=== PATIENT | male | born 1985 | race Caucasian/White ===

== ENCOUNTER 2017-06-12 12:24 | Emergency (ER) | payer MEDICAID ==
[2017-06-12 12:38] VITALS: BP 142/86
--- NOTE | 2017-06-12 12:56 | ED Physician Documentation ---
PD HPI URI - Stated complaint Stated Complaint: SORE THROAT - Chief complaint Chief Complaint: Heent - History obtained from History obtained from: Patient - History of Present Illness Timing - onset: How many days ago (2-3) Timing duration: Days (2-3) Timing details: Gradual onset, Still present Associated symptoms: Sore throat, Dry cough. No: Fever, Nasal congestion, NVD Contributing factors: Other (his boss at [employer] told him he needed to get cleared of strep before continuing work. Here for evaluation. Wants note to say if strep or not.). No: Sick contact Similar symptoms before: Has not had sx before Recently seen: Not recently seen Review of Systems Constitutional: denies: Fever, Chills Nose: reports: Congestion Throat: reports: Sore throat Cardiac: denies: Chest pain / pressure Respiratory: reports: Cough GI: denies: Nausea, Vomiting, Diarrhea Skin: denies: Rash, Lesions PD PAST MEDICAL HISTORY - Past Medical History Cardiovascular: None Respiratory: None Neuro: None Endocrine/Autoimmune: None - Present Medications Home Medications: Ambulatory Orders Medication Instructions Recorded Confirmed No Known Home Medications [No 06/12/17 06/12/17 Known Home Medications] - Allergies Allergies/Adverse Reactions: Allergies Allergy/AdvReac Type Severity Reaction Status Date / Time Penicillins Allergy Hives Verified 06/12/17 12:38 PD ED PE NORMAL - Vitals Vital signs reviewed: Yes - General General: Alert and oriented X 3, No acute distress, Well developed/nourished - HEENT HEENT: No: Pharynx benign (mild redness without swelling nor exudate.) - Neck Neck: Supple, no meningeal sign, Other (mild anterior adenopathy.) - Cardiac Cardiac: RRR, No murmur - Respiratory Respiratory: Clear bilaterally - Derm Derm: Normal color, Warm and dry, No rash - Neuro Neuro: Alert and oriented X 3, Normal speech Results - Vitals Vitals: Vital Signs - 24 hr 06/12/17 12:37 Temperature 36.8 C Heart Rate 73 Respiratory 16 Rate Blood Pressure 142/86 H O2 Saturation 98 Oxygen O2 Source Room air - Labs Labs: Laboratory Tests 06/12/17 13:06 Group A Strep Rapid Negative PD MEDICAL DECISION MAKING - ED course Complexity details: reviewed results, considered differential, d/w patient Departure - Departure Disposition: 01 Home, Self Care Clinical Impression: Upper respiratory infection Qualifiers: URI type: unspecified URI Qualified Code(s): J06.9 - Acute upper respiratory infection, unspecified Condition: Stable Record reviewed to determine appropriate education?: Yes Instructions: ED Upper Resp Infec No Abx Tx Comments: Your rapid strep test is negative. The culture will result in 2 or 3 days and sometimes will molded goods spot picker on infections that the rapid test misses. For now presume viral infection drink lots of fluids and use Tylenol or ibuprofen as needed. Forms: Activity restrictions Discharge Date/Time: 06/12/17 13:36
[2017-06-12] MEDS ORDERED: ACETAMINOPHEN 325 MG TABLET PO STA (13:08)
[2017-06-12] MEDS ORDERED: DEXAMETHASONE 10 MG/ML VIAL PO STA (13:08)
[2017-06-12] MEDS ORDERED: CHERRY SYRUP 10 ML UDC PO ONE (13:29)
== END 2017-06-12 13:36 | disposition home or self-care (01) ==
LOC: ED 12:24
DX: J06.9 Acute upper respiratory infection, unspecified (principal)
CPT/HCPCS: 87070; 87430; 99283; A9270

== ENCOUNTER 2019-03-29 12:31 | Emergency (ER) | payer MEDICAID, OTHER ==
--- NOTE | 2019-03-29 13:18 | ED Physician Documentation ---
PD HPI OPHTHO - Stated complaint Stated Complaint: RT EYE SWELLING - Chief complaint Chief Complaint: Heent - History obtained from History obtained from: Patient - History of Present Illness Timing - onset: Today Timing - duration: Hours (2) Timing - details: Abrupt onset Quality / character: Burning Associated symptoms: Redness, Swelling, Tearing, FB sensation, Photophobia. 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 He woke up this morning about 2 hours prior to presentation with that sensation in the eye was very swollen. 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 He does not wear contacts or glasses. He has had minimal upper respiratory symptoms with some nasal congestion recently but no fevers. No discharge from the eye. He looked in the eye but did not see anything in it. Review of Systems Constitutional: denies: Fever Eyes: reports: Photophobia, Irritation. denies: Loss of vision, Discharge Nose: reports: Congestion. denies: Rhinorrhea / runny nose PD PAST MEDICAL HISTORY - Past Medical History Cardiovascular: None Respiratory: None Endocrine/Autoimmune: None - Past Surgical History Past Surgical History: No - Present Medications Home Medications: Ambulatory Orders Medication Instructions Recorded Confirmed Erythromycin Base [Erythromycin 0.5 inch OP Q4H #1 tube 03/29/19 Ophthalmic Ointment] - Allergies Allergies/Adverse Reactions: Allergies Allergy/AdvReac Type Severity Reaction Status Date / Time Penicillins Allergy Hives Verified 03/29/19 12:36 - Social History Does the pt smoke?: Yes Smoking Status: Current every day smoker Does the pt drink ETOH?: Yes Does the pt have substance abuse?: Yes PD ED PE NORMAL - Vitals Vital signs reviewed: Yes - General General: Alert and oriented X 3, No acute distress, Well developed/nourished - HEENT HEENT: Atraumatic, PERRL, EOMI - Respiratory Respiratory: No respiratory distress PD ED PE EXPANDED - Eyes Eyes: Visual acuity - see nn, Right eye, Normal eyelids, No eyelid FB (everted), Injected conj/sclera, Corneal abrasion (Mid cornea there is a rectangular shaped abrasion oriented perpendicular to the eyelids.), Fluorescein uptake, Anterior chambers clear. No: Eyelid swelling, Eyelid erythema, Exudate, Corneal ulcer, Hyphema Results - Vitals Vitals: Vital Signs - 24 hr 03/29/19 12:36 Temperature 36.8 C Heart Rate 82 Respiratory 17 Rate Blood Pressure 170/94 H O2 Saturation 98 Oxygen O2 Source Room air PD MEDICAL DECISION MAKING - ED course Complexity details: d/w patient, d/w family ED course: Visual acuity was 20/20 in the left eye but only 20/50 in the right I given the location of the abrasion I am not surprised about that. The patient had erythromycin ophthalmic ointment put in the eye. He said the proparacaine drops helped relieve the pain immensely but it was already starting to return a little bit, so he was given a dose of ibuprofen orally. He is to use erythromycin ophthalmic ointment every 4 hours for the next 2 to 3 days. Follow-up with a observer helper or conference and event organiser in 24 hours if not completely 100% improved. Otherwise follow-up with observer helper or conference and event organiser for reevaluation of his vision in 12 to 14 days due to the location of the abrasion. Departure - Departure Disposition: 01 Home, Self Care Clinical Impression: Corneal abrasion, right Qualifiers: Encounter type: initial encounter Qualified Code(s): S05.01XA - Injury of conjunctiva and corneal abrasion without foreign body, right eye, initial encounter Condition: Good Instructions: ED Eye Injury Corneal Abrasion Follow-Up: Lalito Chapman MD [Provider Admit Priv/Credential] - Flaca Castro, OD [Physician No Access] - Prescriptions: Erythromycin Base [Erythromycin Ophthalmic Ointment] 0.5 inch OP Q4H #1 tube Comments: Take ibuprofen [id number] for pain. Avoid bright or flashing lights particularly from screens. Use the eye ointment every 4 hours for the next 2 to 3 days. You should see an conference and event organiser or observer helper for follow-up in 24 hours if not 100% improved. Otherwise follow-up after a period of approximately 10 to 14 days to reevaluate the abrasion given its location right in the field of your vision.
[2019-03-29 13:20] VITALS: BP 170/94
[2019-03-29] MEDS ORDERED: IBUPROFEN 600 MG TABLET PO STA (14:01)
[2019-03-29] MEDS ORDERED: ERYTHROMYCIN OPHTH OINT 1 GM TUBE RIGHTEYE STA (14:02)
== END 2019-03-29 14:18 | disposition home or self-care (01) ==
LOC: ED 12:31
DX: S05.01XA Injury of conjunctiva and corneal abrasion without foreign body, right eye, initial encounter (principal); X58.XXXA Exposure to other specified factors, initial encounter; F17.200 Nicotine dependence, unspecified, uncomplicated
CPT/HCPCS: 99282; 99283; A9270; J3490